=== PATIENT | female | born 1965 | race Caucasian/White ===

== ENCOUNTER 2018-11-07 05:53 | Observation (INO) ==
--- NOTE | 2018-10-14 11:01 | Anesthesiology Consultation ---
Date of Service October 14, 2018 Assessment & Plan (1) Encounter for pre-operative examination: - Check test AM DOS Chart Review Chart Review: Acceptable Risk for Surgery and Patient NOT seen in Pre Admission Testing History Surgery Operation Date: 11/07/18 07:30 Proposed Procedures p L5-S1 Posterior Lumbar Interbody Fusion - Mook Little DO Height/Weight Height: 5 ft 4 in Weight: 87.543 kg Allergies Allergy/AdvReac Type Severity Reaction Status Date / Time fish oil AdvReac Back Pain, Verified 10/14/18 10:59 gums bleeding vitamin E (d-alpha AdvReac Back Pain Verified 10/13/18 12:17 tocopherol) Medications Home Medications Medication Instructions Recorded Confirmed Last Taken Lactobacillus acidophilus 100 mmu cells PO DAILY 10/13/18 10/13/18 Unknown [Probiotic Acidophilus] diclofenac sodium 75 mg PO BID PRN 10/13/18 10/13/18 Unknown ibuprofen 800 mg PO Q8H PRN 10/13/18 10/13/18 Unknown Past Medical History Medical History Chronic back pain Peripheral neuropathy left leg, toes Past Family History Family History Mother Diabetes Hypertension Father Heart disease Grandfather (Paternal) Heart disease Grandfather (Maternal) Heart disease Sister Heart disease Hypertension Brother FHx: renal cell carcinoma Daughter Von Willebrand disease Past Surgical History Surgical History H/O wisdom tooth extraction History of lumbar discectomy L4-L5 Social History Smoking Status: Former smoker tobacco type: cigarettes Do You Dip or Chew Tobacco: No Smoking End Date: 2015 Hx Alcohol Use: Yes Alcohol type: beer, wine and hard liquor alcohol intake frequency: a few times a month Alcohol Intake Frequency Comment: socially Hx Substance Use: No substance use type: does not use Testing Laboratory Results 10/11/18 WBC 10.05 H/H 14.9/43.8 PLATELETS 322 SODIUM 140 POTASSIUM 3.8 CHLORIDE 107 CO2 23 BUN 12 CREATININE 0.72 GLUCOSE 84 Electrocardiogram Date: 10/11/18 NSR with sinus arrhythmia at 87bpm.
--- NOTE | 2018-11-04 17:11 | History and Physical Report ---
DATE OF ADMISSION: 11/07/2018 CHIEF COMPLAINT: Low back pain. HISTORY OF PRESENT ILLNESS: She is being prepped for surgery for a posterior lumbar interbody fusion. She fell playing laser tag several months ago. We tried to treat her conservatively. She just did not make any progress. She is set up for a PLIF procedure L5-S1. PAST MEDICAL HISTORY: Usual childhood diseases. No heart disease, diabetes, carcinoma, hypertension. PAST SURGICAL HISTORY: Microdiscectomy. ALLERGIES: FISH OIL, VITAMIN E. FAMILY HISTORY: Heart disease and breast CA. SOCIAL HISTORY: . No alcohol. Two children. No tobacco use. Moderately active. REVIEW OF SYSTEMS: Twelve system review is negative for fevers, sweats, chills. Ear, nose and throat negative. Denies chest pain, palpitations. No asthma, wheezing, shortness of breath. No nausea, vomiting. She has joint pain, stiffness, weakness, cramping and muscle pain, easy bruisability. MEDICATIONS: Ibuprofen. OBJECTIVE: GENERAL: She is alert. She is 5' 4", 150 pounds. She is in no terrible distress, converses appropriately. VITAL SIGNS: Blood pressure 130/80, pulse 80, respirations 16. CARDIAC: Normal S1, S2, no S3. LUNGS: Clear to auscultation. ABDOMEN: Soft, nontender. NEUROLOGIC: Intact, 5/5 strength, good sensation, decreased range of motion flexion, extension, pain with percussion, mild gait abnormality. Images demonstrated degenerative segment of severity L5-S1. PLAN: PLIF procedure, L5-S1 lumbar spine.
[2018-11-07] MEDS ORDERED: SODIUM CHLORIDE 0.9% 1,000 ML IV SCH (06:00)
[2018-11-07] MEDS ORDERED: LR 15ML/HR IV SCH (06:00)
[2018-11-07] MEDS ORDERED: CEFAZOLIN 2000MG 2,000 MG/15 ML SYR IV SCH (06:00)
[2018-11-07] MEDS ORDERED: DEXAMETHASONE SOD INJ 4 MG/ML VIAL ONE (06:57)
[2018-11-07] MEDS ORDERED: LIDOCAINE HCL 2% 2 ML VIAL/AMP(20MG/ML) INFIL ONE (06:57)
[2018-11-07] MEDS ORDERED: GLYCOPYRROLATE 0.2 MG/ML VIAL ONE (06:57)
[2018-11-07] MEDS ORDERED: PROPOFOL IV EMULSION 10 MG/ML 20 ML VIAL IV ONE (06:57)
[2018-11-07] MEDS ORDERED: NEOSTIGMINE METHYLSULFATE 5 MG/5 ML SYR ONE (06:57)
[2018-11-07] MEDS ORDERED: ONDANSETRON INJ 2 MG/ML 2 ML VIAL ONE (06:57)
[2018-11-07] MEDS ORDERED: ePHEDrine sulfate 50 MG/ML AMP IV PRN (06:58)
[2018-11-07] MEDS ORDERED: ATROPINE SULFATE 0.1 MG/ML 10ML SYR IV PRN (06:58)
[2018-11-07] MEDS ORDERED: ONDANSETRON INJ 2 MG/ML 2 ML VIAL IV PRN ×2 (06:58→11:28)
[2018-11-07] MEDS ORDERED: fentaNYL citrate 100 MCG/2 ML VIAL ONE (07:00)
[2018-11-07] MEDS ORDERED: MIDAZOLAM HCL 1 MG/ML 2ML VIAL ONE (07:00)
[2018-11-07] MEDS ORDERED: BUPIVACAINE/EPINEPHRINE 0.5% MPF 1:200,000 30 ML VIAL ONE (07:04)
[2018-11-07] MEDS ORDERED: BACITRACIN INJ 50,000 UNIT VIAL ONE (07:04)
[2018-11-07] MEDS ORDERED: VANCOMYCIN HCL 1000MG/20ML VIAL ONE (07:04)
[2018-11-07] MEDS ORDERED: GELATIN SPONGE SZ 100 ONE (07:04)
[2018-11-07] MEDS ORDERED: THROMBIN FOR SOLN 20000 UNIT KIT ONE (07:04)
--- NOTE | 2018-11-07 07:17 | History & Physical Bridge Note ---
Date of Service November 07, 2018 History & Physical Bridge Note I have examined the patient, reviewed the History & Physical and in the interval since the performance of the History & Physical I have noted the following changes of clinical significance: no changes noted
[2018-11-07] MEDS ORDERED: ROCURONIUM BROMIDE 10 MG/ML 5 ML VIAL ONE (08:06)
[2018-11-07] MEDS ORDERED: HYDROmorphone INJ 2 MG/ML SYR/VIAL ONE (08:07)
--- NOTE | 2018-11-07 09:32 | Fluoroscopy Report ---
LUMBAR SPINE, INTRAOPERATIVE FLUOROSCOPY HISTORY: L5-S1 posterior fusion. FLUOROSCOPY TIME: 6 seconds. FINDINGS: Intraoperative fluoroscopy was provided for the lumbar spine. Single fluoroscopic spot imag e demonstrates posterior decompression fusion at L5-S1 with pedicle screws.. IMPRESSION: Fluoroscopy provided for a L5-S1 posterior decompression and fusion. Electronically signed by: Tavares French M.D. 11/07/2018 9:31 AM
--- NOTE | 2018-11-07 09:52 | Post Operative Brief Note ---
PG Immediate Post Op with CF Date of Surgery November 07, 2018 Pre & Post Diagnosis Operation Date: 11/07/18 07:30 Pre-Op Diagnosis: Degenerative Disc L5-S1 Post-Op Diagnosis: Degenerative Disc L5-S1 Procedure Operation Date: 11/07/18 07:30 Actual Procedures p L5-S1 Posterior Lumbar Fusion - Mook Little DO Surgeon Mook Little DO [employer] shama Estimated Blood Loss 150 Findings Consistent with Post-Op Diagnosis Specimens Specimen Description: none Drains Arango Catheter and Hemovac Drain
[2018-11-07] MEDS: fentaNYL citrate 100 MCG/2 ML VIAL IV PRN ×4 (10:14→10:29)
[2018-11-07] MEDS ORDERED: PROMETHAZINE HCL 6.25 MG in SODIUM CHLORIDE 0.9% 50 ML IV PRN (10:26)
--- NOTE | 2018-11-07 11:25 | Anesthesiology Progress Note ---
Date of Service November 07, 2018 Anesthesia Post Procedure Vital Signs Vital Signs: Temp Pulse Pulse Resp BP Pulse Ox 11/07/18 11:00 36.8 C 11/07/18 10:54 36.8 C 68 16 128/69 98 11/07/18 10:45 90 16 136/86 98 11/07/18 10:35 74 16 117/71 95 11/07/18 10:25 82 16 116/66 98 11/07/18 10:15 95 H 16 126/71 100 11/07/18 10:05 90 16 125/84 100 11/07/18 09:59 37.2 C 80 16 129/93 96 11/07/18 06:25 36.8 C 90 18 137/97 97 Pain Intensity Lower Back: Pain Intensity: 2 Transfer of Care Handoff Completed per policy Notes Mental Status: alert / awake / arousable and participated in evaluation Patient Amnestic to Procedure: Yes Nausea / Vomiting: adequately controlled Pain: adequately controlled Airway Patency, RR, SpO2: stable & adequate BP & HR: stable & adequate Hydration State: stable & adequate Anesthetic Complications: no major complications apparent and Pt Satisfied with anesthetic care
[2018-11-07] MEDS ORDERED: ALUMINUM/MAGNESIUM SUSP 30 ML UDC PO PRN (11:28)
[2018-11-07] MEDS ORDERED: DO NOT ADMINISTER FLU VACCINE PRN (11:28)
[2018-11-07] MEDS ORDERED: NALOXONE HCL 0.4 MG/1 ML VIAL/CARP IV PRN (11:28)
[2018-11-07] MEDS ORDERED: SOD PHOSPHATE/SOD BIPHOSPHATE ENEMA 132 ML BTL PR PRN (11:28)
[2018-11-07] MEDS ORDERED: bisacodyL 10 MG SUPP PR PRN (11:28)
[2018-11-07] MEDS ORDERED: MAGNESIUM HYDROXIDE SUSP 30 ML UDC PO PRN (11:28)
[2018-11-07] MEDS ORDERED: FAMOTIDINE 20 MG TAB PO PRN (11:28)
[2018-11-07] MEDS ORDERED: ONDANSETRON 4 MG TAB PO PRN (11:28)
[2018-11-07] MEDS ORDERED: DO NOT ADMINISTER PNEUMOCOCCAL VACCINE PRN (11:28)
[2018-11-07] MEDS ORDERED: ACETAMINOPHEN 1,000 MG/100 ML VIAL IV PRN (11:28)
[2018-11-07] MEDS ORDERED: HYDROmorphone INJ 0.5 MG/0.5 ML SYR IV PRN (11:28)
[2018-11-07] MEDS ORDERED: ACETAMINOPHEN 500 MG TAB PO PRN (11:28)
[2018-11-07] MEDS: SODIUM CHLORIDE 0.9% 1000ML 1,000 ML IV SCH ×2 (13:16→23:41)
--- NOTE | 2018-11-07 13:26 | Operative Report ---
"DATE OF OPERATION: 11/07/2018 PREOPERATIVE DIAGNOSES: Degenerative segment, lumbar spine; instability, lumbar spine and stenosis L5-S1. POSTOPERATIVE DIAGNOSES: Degenerative segment, lumbar spine; instability, lumbar spine and stenosis L5-S1. PROCEDURES: Include: 1. Laminectomy and fusion L5-S1. 2. The procedure was a posterior approach, foraminotomy, partial facetectomy L5-S1 single segment. 3. Posterior lateral fusion L5 to the sacrum. 4. Lastly, a pedicle screw instrumentation at L5-S1. There was no interbody device. SURGEON: Mook Little DO. LINER INSERTER: Jose Wahl PA-C. COMPLICATIONS: Zero. BLOOD LOSS: 150. ANESTHETIC: General. IMPLANTS USED: By the [employer]. COUNTS: Sponge and needle count correct at the close. DESCRIPTION OF PROCEDURE: The patient was taken to the operating room, a general intubated anesthetic provided to the patient, a Arango catheter administered. She was placed prone, scrubbed and draped sterile. We made a skin incision, fascial incision. I was pleased with the dissection. We got down to the lamina of L5-S1. The dissection was difficult. Her bone was quite rigid. We decompressed the neural elements. The nerve roots were impacted in bone and under significant pressure. We were to dig those out primarily particularly on the right hand side. I think we really freed up the nerve roots nicely. Ample foraminotomies provided at L5-S1. I then instrumented the spine and safely got pedicle screws in L5 and S1 bilaterally with the [employer]. I wanted to do an interbody fusion. It was calcified over; there was no room for the interbody device. We then irrigated thoroughly with normal saline solution. We bone grafted over the transverse processes of L5 to the sacral ala. This was a combination of autograft and demineralized bone matrix. We then closed fascia to fascia over Hemovac drain and vancomycin powder with 1 Vicryl suture, 2-0 in the subcuticular layers, 3-0 nylon on the skin. Sterile dressings applied. The patient returned to PACU stable. There were no apparent complications. I attest to the content of the Intraoperative Record and any orders documented therein. Any exception s are noted below."
[2018-11-07] MEDS: CEFAZOLIN 2000MG 2,000 MG/15 ML SYR IV SCH ×2 (15:45→23:42)
[2018-11-07] MEDS ORDERED: COUGH DROP (SUGAR FREE) LOZ 24 LOZ/1 BOX BUCCAL PRN (15:46)
[2018-11-07] MEDS ORDERED: DOCUSATE SODIUM/SENNA 50/8.6MG TAB PO SCH (21:00)
[2018-11-07] MEDS: OXYCODONE HCL IR 5 MG TAB (IMMEDIATE RELEASE) PO PRN ×2 (22:31→23:08)
[2018-11-08] MEDS: OXYCODONE HCL IR 5 MG TAB (IMMEDIATE RELEASE) PO PRN ×2 (05:24→12:30)
--- NOTE | 2018-11-08 07:31 | Anesthesiology Progress Note ---
Date of Service November 08, 2018 Anesthesia Post Procedure Vital Signs Vital Signs: Temp Pulse Pulse Resp BP Pulse Ox 11/08/18 07:13 36.5 C 83 16 135/91 95 11/08/18 03:17 36.6 C 83 16 135/87 98 11/07/18 23:37 36.5 C 90 16 132/83 97 11/07/18 19:24 37.1 C 89 17 152/94 H 97 11/07/18 15:23 37.0 C 102 H 16 174/93 H 100 11/07/18 14:18 98 H 18 156/93 H 100 11/07/18 13:12 107 H 18 126/85 100 11/07/18 12:18 67 16 103/67 97 11/07/18 11:55 89 18 130/77 100 11/07/18 11:15 36.4 C L 88 16 136/88 99 11/07/18 11:00 36.8 C 11/07/18 10:54 36.8 C 68 16 128/69 98 11/07/18 10:45 90 16 136/86 98 11/07/18 10:35 74 16 117/71 95 11/07/18 10:25 82 16 116/66 98 11/07/18 10:15 95 H 16 126/71 100 11/07/18 10:05 90 16 125/84 100 11/07/18 09:59 37.2 C 80 16 129/93 96 Pain Intensity Lower Back: Pain Intensity: 4 Notes Mental Status: alert / awake / arousable and participated in evaluation Nausea / Vomiting: adequately controlled Pain: adequately controlled Airway Patency, RR, SpO2: stable & adequate BP & HR: stable & adequate Hydration State: stable & adequate
[2018-11-08] MEDS ORDERED: LACTOBACILLUS ACIDOPHILUS (FLORANEX) TAB PO SCH (09:00)
--- NOTE | 2018-11-22 19:16 | Discharge Summary ---
Nikole had an uneventful hospital course. She was somewhat lightheaded the first day postoperatively, but her vital signs were stable. No chest pain, shortness of breath or confusion. ASSESSMENT: Status post lumbar spine reconstructive surgery. A PLIF procedure L5-S1 uneventful postoperative course. PLAN: She was discharged home in improved stable condition. Instructions, precautions given to her in the office and on the nursing floor. Followup examination will be done in the office from discharge approximately 12 days.
== END 2018-11-08 14:44 | disposition home or self-care (01) ==
LOC: 3E 05:53 → ASU 05:53